=== PATIENT | male | born 1985 | race African-American/Black ===

== ENCOUNTER 2024-10-31 14:53 | Emergency (ER) | payer OTHER ==
[~2024-10-31] VITALS: Ht 165.1 cm; Wt 96.2 kg
[2024-10-31 15:00] VITALS: PULSE 83; RESP 20; TEMP 98.2
[2024-10-31] MEDS: SODIUM CHLORIDE 0.9% 1000ML 1,000 ML IV ONE (15:56)
[2024-10-31] MEDS: FAMOTIDINE 20 MG/2 ML VIAL IV STA (15:56)
[2024-10-31] MEDS ORDERED: CYCLOBENZAPRINE5 MG PO (16:36)
[2024-10-31 16:37] VITALS: BP 140/75; PULSE 75; RESP 16; TEMP 97.7; O2SAT 100
[2024-10-31 18:17] LABS: CHOL/HDL RATIO 6.2 (3.9-4.7)
== END 2024-10-31 16:46 | disposition home or self-care (01) ==
LOC: FSED 14:58
DX: R06.02 Shortness of breath (principal); R07.89 Other chest pain
CPT/HCPCS: 36415; 71045; 80048; 80061; 80076; 80307; 81003; 84484; 85025; 93005; 99283; J1308; J7030